=== PATIENT | male | born 1980 | race Two or more races ===

== ENCOUNTER 2018-01-29 21:53 | Emergency (ER) | payer MEDICAID, OTHER ==
[~2018-01-29] VITALS: Ht 172.7 cm; Wt 68.0 kg
[2018-01-29 22:16] VITALS: BP 125/76
== END 2018-01-30 04:07 | disposition left against medical advice (07) ==
LOC: ER 22:00
DX: R50.9 Fever, unspecified (principal); R20.0 Anesthesia of skin; Z53.21 Procedure and treatment not carried out due to patient leaving prior to being seen by health care provider

== ENCOUNTER 2018-01-30 13:53 | Emergency (ER) | payer MEDICAID ==
[~2018-01-30] VITALS: Ht 172.7 cm; Wt 68.0 kg
[2018-01-30 14:00] VITALS: BP 122/90
== END 2018-01-30 18:04 | disposition home or self-care (01) ==
LOC: ER 13:57
DX: K61.1 Rectal abscess (principal); Z21 Asymptomatic human immunodeficiency virus [HIV] infection status; Z91.013 Allergy to seafood
CPT/HCPCS: 46050; 99284; C1887